=== PATIENT | male | born 1990 | race Caucasian/White ===

== ENCOUNTER 2020-09-13 11:46 | Emergency (ER) | payer SELFPAY ==
[~2020-09-13] VITALS: Ht 175.3 cm; Wt 83.5 kg
[2020-09-13 12:02] VITALS: Ht 175.3 cm; Wt 83.5 kg
[2020-09-13 13:54] VITALS: BP 104/63
== END 2020-09-13 13:54 | disposition home or self-care (01) ==
LOC: ED 11:46
DX: S06.0X1A Concussion with loss of consciousness of 30 minutes or less, initial encounter (principal); V00.131A Fall from skateboard, initial encounter; Y93.89 Activity, other specified; Y92.89 Other specified places as the place of occurrence of the external cause; Y99.8 Other external cause status